=== PATIENT | male | born 1990 | race Caucasian/White ===

== ENCOUNTER → 2023-09-08 | Day surgery (SDC) | payer BC ==
[2023-09-06 12:20] VITALS: BMI 24.3
[~2023-09-08] MED LIST: LACTATED RINGERS 1,000 ML IV SCH
[2023-09-08 14:04] VITALS: RESP 16; TEMP 97.6
--- NOTE | 2023-09-08 15:50 | P.PCN ---
Date of Procedure: 09/08/23 Procedure(s) Performed: BRIEF HISTORY: Patient is a 30-year-old pleasant white male scheduled for an elective colonoscopy as a part of evaluation of chronic constipation and intermittent rectal bleeding for the last several years duration. PROCEDURE PERFORMED: Colonoscopy. PREOPERATIVE DIAGNOSIS: Constipation and intermittent rectal bleeding. IV sedation per Anesthesia. PROCEDURE: After informed consent was obtained, the patient, was brought into the endoscopy unit. IV sedation was administered by Anesthesia under continuous monitoring. Digital rectal examination was normal. Initially the Olympus CF-160 flexible video colonoscope was then inserted in the rectum, gradually advanced into the cecum without any difficulty. Careful examination was performed as the scope was gradually being withdrawn. Ileocecal valve and the appendiceal orifice were visualized and appeared normal. Prep was excellent. Mucosa of the cecum, ascending colon, transverse colon, descending colon, sigmoid colon, and rectum appeared normal. Retroflexion was performed in the rectum and small internal hemorrhoids were seen. The patient tolerated the procedure well. IMPRESSION: Normal-appearing colon from rectum to cecum no evidence of colorectal neoplasia . Small internal hemorrhoids RECOMMENDATIONS: Findings of this examination were discussed with the patient as well as his family. He was advised to be a high-fiber diet and take fiber supplements a regular basis and use MiraLAX as needed..
[2023-09-08 16:01] VITALS: BP 109/75; PULSE 74
== END ==
LOC: ORWHC2ENDO 12:24
PROVIDERS: ATTEND Internal Medicine Gastroenterology
DX: K59.00 Constipation, unspecified (principal); K64.8 Other hemorrhoids; Z88.0 Allergy status to penicillin; Z79.899 Other long term (current) drug therapy
CPT/HCPCS: 45378

== ENCOUNTER 2024-11-06 08:15 | Day surgery (SDC) | payer BC ==
[~2024-11-06 08:15] MED LIST changes: +HYDROmorphone 0.5 MG/0.5 ML SYRINGE IVP PRN; -LACTATED RINGERS 1,000 ML IV SCH; +LIDOCAINE 1% (10MG/ML) FOR IV START INTRADERMA PRN; +OXYMETAZOLINE 0.05% NASL SPRAY 1 SPRAY BOTTLE EA NOSTRIL PRN; +fentaNYL (PF) 50 MCG/ML 2 ML AMP IV PRN
[2024-11-06] MEDS: IV FLUID CONTINUATION 1,000 ML IV ONE (09:00)
[2024-11-06] MEDS: DEXAMETHASONE SOD PHOSPHATE 4 MG/ML 1 ML VIAL IV ONE (09:39)
[2024-11-06] MEDS: ONDANSETRON 4 MG/2 ML VIAL IVP PRN (09:39)
[2024-11-06] MEDS: FAMOTIDINE 20 MG/2 ML VIAL IV PRN (09:40)
[2024-11-06] MEDS: LACTATED RINGERS 1,000 ML IV SCH (09:40)
[2024-11-06] MEDS ORDERED: SUCCINYLCHOLINE CHLORIDE 200 MG/10 ML VIAL IV ONE (09:45)
[2024-11-06] MEDS ORDERED: fentaNYL (PF) 50 MCG/ML 2 ML AMP ONE (09:45)
[2024-11-06] MEDS ORDERED: MIDAZOLAM 2 MG/2 ML VIAL ONE (09:45)
[2024-11-06] MEDS ORDERED: PROPOFOL 10 MG/ML 20 ML VIAL IV ONE (09:45)
[2024-11-06 09:53] VITALS: RESP 16; TEMP 97.8
[2024-11-06] MEDS: LIDOCAINE 1%-EPI 1:100,000 20 ML VIAL SUBMUCOSAL ONE (10:07)
[2024-11-06] MEDS: OXYMETAZOLINE 0.05% NASL SPRAY 1 SPRAY BOTTLE MISCELLANE ONE (10:08)
[2024-11-06] MEDS: CLINDAMYCIN 600 MG in DEXTROSE 5% IN WATER 50 ML IVPB PRN (10:40)
--- NOTE | 2024-11-06 10:45 | P.OP ---
Date of Procedure: 11/06/24 Preoperative Diagnosis: inferior turbinate hypertrophy Chronic sinusitis Sinonasal polyposis Postoperative Diagnosis: same Procedure(s) Performed: outfractured and submucous resection of the inferior turbinates Bilateral endoscopic sinus surgery including bilateral maxillary antrostomy with removal of tissue from exercise sinuses, bilateral anterior posterior ethmoidectomy with frontal sinus exploration and removal of tissue and bilateral sphenoidotomy with removal of tissue from the sphenoid sinuses all with polypectomy Anesthesia: NICOLE Surgeon: Jluis Crane Estimated Blood Loss (ml): 10 Pathology: other (sinus contents) Condition: stable Disposition: PACU Indications for Procedure: is a 34-year-old white female whose had difficulties with chronic nasal airway obstruction and congestion. There is a remote history of sinonasal polyps with surgical intervention an improvement in the past but recurrent symptoms now with physical exam and CT evidence of recurrent polyps Operative Findings: diffuse sinonasal polyps in the maxillary ethmoid frontal and sphenoid sinuses with inferior turbinate hypertrophy-there were a few residual ethmoid air cells were opened also Description of Procedure: The patient was brought into the operative suite and placed in a supine position. The patient underwent induction of general anesthesia with oral endotracheal intubation without difficulty. The patient was prepped and draped in the usual aseptic fashion with the orbits in the operating field for monitoring to the case and the computed tomography scan was on the computer screen for review throughout the case. 1% lidocaine with 1 :100,000 epinephrine was infused submucosally into both sides of the nasal septum as well as the lateral nasal wall and anterior tips of the middle turbinates. While this was taking vasoconstrictive effect the inferior turbinates were infractured with [place] elevator and partial submucous resection of the inferior turbinates was performed with a portion of the submucosal soft tissue and the inferior turbinate bone removed with Coblation device. The inferior turbinates were then outfractured with the [place] elevator. Full 0 endoscopic examination is performed bilaterally. Beginning on the left, the middle turbinate was medialized. The maxillary ostium was located with a ballpoint probe and an infundibulotomy was performed followed by uncinectomy. The maxillary antrostomy was enlarged at the expense of the anterior and posterior fontanelle taking care anteriorly not to injure the lacrimal bone. The maxillary sinus was evaluated with 30 and 70 endoscope .[Abnormal appearing tissue was removed from the maxillary sinus]. Anterior and posterior ethmoidectomy were then performed from anterior to posterior to the level of the skull base. The roof of the anterior ethmoid air cells were then cleaned from posterior to anterior using up-biting [place] forceps. Frontal sinusotomy was also performed with giraffe forceps and explored with polyps removed. Sphenoidotomy was performed with straight suction and straight [place] forceps with polyps removed from the sphenoid sinus. Attention was then turned to the right where the procedures were followed as they were on the left including revision maxillary antrostomy with removal of tissue from exercise sinuses anterior posterior ethmoidectomy tonsil sinusotomy with removed tissue from the frontal sinus sphenoidotomy with removal of tissue from the sphenoid sinuses. [Nasopore nasal dressing was placed in the middle meatus bilaterally under direct visualization]. The patient was suctioned in oral gastric fashion and was allowed to emerge from general anesthesia having tolerated procedure well and was extubated in the operating suite and transferred to the postoperative recovery area in satisfactory condition.
[2024-11-06 11:38] VITALS: BP 115/78; PULSE 72
[2024-11-06] MEDS: HYDROcodone/APAP 5-325MG 1 EACH TAB PO STA (11:53)
== END 2024-11-06 12:25 | disposition home or self-care (01) ==
LOC: OR 08:15
PROVIDERS: ATTEND Otolaryngology
DX: J32.8 Other chronic sinusitis (principal); J34.3 Hypertrophy of nasal turbinates; J34.2 Deviated nasal septum; G43.909 Migraine, unspecified, not intractable, without status migrainosus; K21.9 Gastro-esophageal reflux disease without esophagitis; Z79.899 Other long term (current) drug therapy; Z88.0 Allergy status to penicillin
CPT/HCPCS: 30140; 31267; 31259; 31276; 88305; J2250; J0330; J1100; J2405; J3010; J3490; J2704; J0736